=== PATIENT | male | born 1935 | race Caucasian/White ===

== ENCOUNTER 2017-09-13 13:24 | Emergency (ER) | payer MEDICARE, OTHER ==
[2017-09-13] MEDS ORDERED: Sodium Chloride 0.9% 10 ML Syringe FLUSH PRN (13:48)
[2017-09-13] MEDS ORDERED: Labetalol 100 MG/20 ML MDV IVPUSH ONE ×3 (13:49→15:35)
[2017-09-13] MEDS ORDERED: hydrALAZINE 20 MG/ML SDV IVPUSH ONE (16:29)
--- NOTE | 2017-09-13 16:44 | EDM.PDOC ---
ED HPI GENERAL MEDICAL PROBLEM - General Chief Complaint: Cardiovascular Problem Stated Complaint: HIGH BLOOD PRESSURE Time Seen by Provider: 09/13/17 13:44 Source of Information: Reports: Patient, Family History Limitations: Reports: No Limitations - History of Present Illness INITIAL COMMENTS - FREE TEXT/NARRATIVE: The patient presents with elevated blood pressure and some head pressure. The patient was seeing Dr Matthews today and his blood pressure was elevated. When he arrived here it was 256 systolic. He had a slight headache described as pressure. He has no chest pain or shortness of breath. He has no fever, chills , cough, congestion, vision changes, abdominal pain, nausea or vomiting. There has been no changes to his medicines and he did not miss a dose. Dr Alvarez is his doctor. Onset: Gradual Duration: Hour(s): Location: Reports: Head Quality: Reports: Ache Severity: Mild Improves with: Reports: None Worsens with: Reports: None Context: Reports: Activity Associated Symptoms: Reports: No Other Symptoms Head Pain Score (Numeric/FACES): 4 - Related Data Allergies Allergy/AdvReac Type Severity Reaction Status Date / Time No Known Allergies Allergy Verified 09/13/17 13:39 Home Meds: Home Meds Aspirin 81 mg PO BRK 09/13/17 [History] Diclofenac Sodium [Diclofenac Sodium ER] 75 mg PO BID 09/13/17 [History] Finasteride [Proscar] 5 mg PO DAILY 09/13/17 [History] Gabapentin [Neurontin] 600 mg PO BID 09/13/17 [History] Gluc 2KCl/Chondr/Compa Hy/Hy Ac [Glucosamine & Chondroitin Cap] 1 each PO DAILY 09/13/17 [History] Hydrochlorothiazide 12.5 mg PO DAILY 09/13/17 [History] Lisinopril 40 mg PO DAILY 09/13/17 [History] Metoprolol Succinate [Toprol XL] 50 mg PO DAILY 09/13/17 [History] Misoprostol [Cytotec] 200 mcg PO BID 09/13/17 [History] Orphenadrine [Norflex] 100 mg PO BID 09/13/17 [History] Pravastatin [Pravachol] 40 mg PO DAILY 09/13/17 [History] Tamsulosin [Flomax] 1 tab PO DAILY 09/13/17 [History] Social & Family History - Tobacco Use Smoking Status *Q: Former Smoker Used Tobacco, but Quit: Yes Month Tobacco Last Used: 1983 Second Hand Smoke Exposure: No - Caffeine Use Caffeine Use: Reports: Coffee, Soda - Recreational Drug Use Recreational Drug Use: No ED ROS GENERAL - Review of Systems Review Of Systems: See Below Constitutional: Reports: No Symptoms HEENT: Reports: No Symptoms Respiratory: Reports: No Symptoms Cardiovascular: Reports: No Symptoms Endocrine: Reports: No Symptoms GI/Abdominal: Reports: No Symptoms : Reports: No Symptoms Musculoskeletal: Reports: No Symptoms ED EXAM, GENERAL - Physical Exam Exam: See Below Exam Limited By: No Limitations General Appearance: Alert, No Apparent Distress Ears: Normal External Exam Nose: Normal Inspection Head: Atraumatic, Normocephalic Neck: Normal Inspection Respiratory/Chest: No Respiratory Distress, Lungs Clear, Normal Breath Sounds Cardiovascular: Regular Rate, Rhythm, No Edema, No Murmur GI/Abdominal: Soft, Non-Tender, No Organomegaly, No Mass Back Exam: Normal Inspection Extremities: Normal Inspection EKG INTERPRETATION EKG Date: 09/13/17 Time: 13:39 Rhythm: NSR Rate (Beats/Min): 64 Rydal: Normal P-Wave: Present QRS: Normal ST-T: Normal QT: Normal VT/PQ Interval: 1st degree HB Course - Vital Signs Last Recorded V/S: Last Vital Signs Temp 98 F 09/13/17 13:36 Pulse 65 09/13/17 15:42 Resp 18 09/13/17 13:36 BP 200/92 H 09/13/17 15:42 Pulse Ox 97 09/13/17 14:23 - Orders/Labs/Meds Orders: Active Orders 24 hr Category Date Time Status Cardiac Monitoring [RC] . DIRECTED Care 09/13/17 13:48 Active EKG Documentation Completion [RC] STAT Care 09/13/17 13:49 Active Oxygen Therapy [RC] PRN Care 09/13/17 13:48 Active Peripheral IV Care [RC] . DIRECTED Care 09/13/17 13:49 Active Head wo Cont [CT] Stat Exams 09/13/17 13:49 Taken Sodium Chloride 0.9% [Saline Flush] Med 09/13/17 13:48 Active 10 ml FLUSH ASDIRECTED PRN Peripheral IV Insertion Adult [OM.PC] Stat Oth 09/13/17 13:48 Ordered Medication Orders Sodium Chloride (Saline Flush) 10 ml FLUSH ASDIRECTED PRN PRN Reason: Keep Vein Open Last Admin: 09/13/17 14:35 Dose: 10 ml Labs: Laboratory Tests 09/13/17 09/13/17 Range/Units 14:30 14:30 WBC 5.01 (4.23-9.07) K/mm3 RBC 4.27 L (4.63-6.08) M/mm3 Hgb 13.7 (13.7-17.5) gm/L Hct 39.0 L (40.1-51.0) % MCV 91.3 (79.0-92.2) fl MCH 32.1 (25.7-32.2) pg MCHC 35.1 (32.2-35.5) g/dl RDW Std Deviation 41.2 (35.1-43.9) fL Plt Count 166 (163-337) K/mm3 MPV 8.9 L (9.4-12.3) fl Neut % (Auto) 63.0 (34.0-67.9) % Lymph % (Auto) 20.6 L (21.8-53.1) % Hall % (Auto) 10.6 (5.3-12.2) % Eos % (Auto) 4.4 (0.8-7.0) Baso % (Auto) 1.2 (0.1-1.2) % Neut # (Auto) 3.16 (1.78-5.38) K/mm3 Lymph # (Auto) 1.03 L (1.32-3.57) K/mm3 Hall # (Auto) 0.53 (0.30-0.82) K/mm3 Eos # (Auto) 0.22 (0.04-0.54) K/mm3 Baso # (Auto) 0.06 (0.01-0.08) K/mm3 Sodium 140 (136-145) mEq/L Potassium 4.1 (3.5-5.1) mEq/L Chloride 104 (98-107) mEq/L Carbon Dioxide 28 (21-32) mEq/L Anion Gap 12.1 (5-15) BUN 24 H (7-18) mg/dL Creatinine 1.2 (0.7-1.3) mg/dL Est Cr Clr Drug Dosing 51.42 mL/min Estimated GFR (MDRD) 58 (>60) mL/min BUN/Creatinine Ratio 20.0 H (14-18) Glucose 100 (83-115) mg/dL Calcium 8.8 (8.5-10.1) mg/dL Total Bilirubin 0.9 (0.2-1.0) mg/dL AST 20 (15-37) U/L ALT 24 (16-63) U/L Alkaline Phosphatase 63 (46-116) U/L Troponin I < 0.017 (0.00-0.056) ng/mL Total Protein 7.1 (6.4-8.2) g/dl Albumin 3.7 (3.4-5.0) g/dl Globulin 3.4 gm/dL Albumin/Globulin Ratio 1.1 (1-2) Meds: Medications Generic Name Dose Route Start Last Admin Trade Name Freq PRN Reason Stop Dose Admin Sodium Chloride 10 ml 09/13/17 13:48 09/13/17 14:35 Saline Flush FLUSH 10 ml ASDIRECTED PRN Administration Keep Vein Open Discontinued Medications Generic Name Dose Route Start Last Admin Trade Name Freq PRN Reason Stop Dose Admin Hydralazine HCl 10 mg 09/13/17 16:29 Apresoline IVPUSH 09/13/17 16:30 ONETIME ONE Labetalol HCl 20 mg 09/13/17 13:49 09/13/17 14:35 Normodyne IVPUSH 09/13/17 13:50 20 mg ONETIME ONE Administration Protocol Labetalol HCl 20 mg 09/13/17 15:33 Normodyne IVPUSH 09/13/17 15:34 ONETIME ONE Protocol Labetalol HCl 40 mg 09/13/17 15:35 09/13/17 15:42 Normodyne IVPUSH 09/13/17 15:36 40 mg ONETIME ONE Administration Protocol - Re-Assessments/Exams Free Text/Narrative Re-Assessment/Exam: 09/13/17 16:42 I ordered an IV saline lock, EKG, labs, EKG and labetalol 20mg IV. His EKG shows a 1st degree HB with no changes. His CT of his head looks good. His CBC and CMP looks good. His troponin is negative. His BP came down and went back up again so I ordered labetalol 40mg IV. The head pressure is gone. I called Dr Alvarez and he wanted his metoprolol increased and his HCTZ. Departure - Departure Time of Disposition: 16:45 Disposition: Home, Self-Care 01 Condition: Good Clinical Impression: Hypertensive urgency Referrals: John Alvarez MD [Primary Care Provider] - Additional Instructions: Take 100mg of metoprolol or the toprol XL daily. Take 25mg of the hydrochlorothiazide daily. Follow up with Dr Alvarez on Monday. Please return if you are worse. - My Orders Last 24 Hours: My Active Orders 09/13/17 13:48 Cardiac Monitoring [RC] . DIRECTED Oxygen Therapy [RC] PRN Sodium Chloride 0.9% [Saline Flush] 10 ml FLUSH ASDIRECTED PRN Peripheral IV Insertion Adult [OM.PC] Stat 09/13/17 13:49 EKG Documentation Completion [RC] STAT Peripheral IV Care [RC] . DIRECTED Head wo Cont [CT] Stat - Assessment/Plan Last 24 Hours: My Active Orders 09/13/17 13:48 Cardiac Monitoring [RC] . DIRECTED Oxygen Therapy [RC] PRN Sodium Chloride 0.9% [Saline Flush] 10 ml FLUSH ASDIRECTED PRN Peripheral IV Insertion Adult [OM.PC] Stat 09/13/17 13:49 EKG Documentation Completion [RC] STAT Peripheral IV Care [RC] . DIRECTED Head wo Cont [CT] Stat
--- NOTE | 2017-09-15 17:05 | CT ---
Head CT Technique: Multiple axial sections through the brain were obtained. Intravenous contrast was not utilized. Comparison: No previous intracranial imaging. Findings: Ventricles along with basal cisterns and sulci over the convexities are mildly prominent. Minimal diminished density is noted within the periventricular and subcortical white matter compatible with small vessel ischemic demyelination change. No other abnormal parenchymal densities are seen. No evidence of intracranial hemorrhage. No midline shift or mass effect is seen. Visualized sinuses are clear. No acute calvarial abnormality is identified. Impression: 1. Mild senescent change. No acute intracranial abnormality is identified. Diagnostic code #2 I agree with preliminary report issued by [facility] ([facility] report finalized on 09/13/17, 4:13 PM Central Time)
== END 2017-09-13 17:04 | disposition home or self-care (01) ==
LOC: JD.ED 13:24
DX: I16.0 Hypertensive urgency (principal); Z79.82 Long term (current) use of aspirin; Z79.899 Other long term (current) drug therapy; Z87.891 Personal history of nicotine dependence; R51 Headache
CPT/HCPCS: 36415; 70450; 80053; 84484; 85025; 93005; 96374; 96375; 96376; 99284; J0360; J7050; 93010

== ENCOUNTER 2017-09-15 19:09 | Emergency (ER) | payer MEDICARE, OTHER ==
--- NOTE | 2017-09-15 19:38 | EDM.PDOC ---
ED HPI GENERAL MEDICAL PROBLEM - General Chief Complaint: Cardiovascular Problem Stated Complaint: HIGH BLOOD PRESSURE Time Seen by Provider: 09/15/17 19:37 - History of Present Illness INITIAL COMMENTS - FREE TEXT/NARRATIVE: 81-year-old male returns emergency room with escalated blood pressure. Short time ago noticed his blood pressure was quite elevated. Patient seen here 2 days ago with continued high blood pressure, systolics in the 250s. He had his metoprolol increased to twice a day as with his hydrochlorothiazide. He been doing well after this until this evening. The patient does not have chest pain chest pressure breathing difficulties or shortness of breath he does not have a headache he has no areas of numbness or weakness basically has no other complaints at this time. - Related Data Allergies Allergy/AdvReac Type Severity Reaction Status Date / Time metoclopramide [From Reglan] Allergy Other Verified 09/15/17 19:40 Sulfa (Sulfonamide Allergy Cannot Verified 09/15/17 19:40 Antibiotics) Remember Home Meds: Home Meds Aspirin 81 mg PO BRK 09/13/17 [History] Diclofenac Sodium [Diclofenac Sodium ER] 75 mg PO BID 09/13/17 [History] Finasteride [Proscar] 5 mg PO DAILY 09/13/17 [History] Gabapentin [Neurontin] 600 mg PO BID 09/13/17 [History] Gluc 2KCl/Chondr/Compa Hy/Hy Ac [Glucosamine & Chondroitin Cap] 1 each PO DAILY 09/13/17 [History] Hydrochlorothiazide 25 mg PO BID 09/13/17 [History] Lisinopril 40 mg PO DAILY 09/13/17 [History] Metoprolol Succinate [Toprol XL] 100 mg PO DAILY 09/13/17 [History] Misoprostol [Cytotec] 200 mcg PO BID 09/13/17 [History] Orphenadrine [Norflex] 100 mg PO BID 09/13/17 [History] Pravastatin [Pravachol] 40 mg PO DAILY 09/13/17 [History] Tamsulosin [Flomax] 1 tab PO DAILY 09/13/17 [History] Acetaminophen [Tylenol Arthritis] 650 mg PO BID 09/15/17 [History] cloNIDine [Catapres] 0.1 mg PO Q12HR #30 tablet 09/16/17 [Rx] Past Medical History HEENT History: Reports: Impaired Vision Cardiovascular History: Reports: High Cholesterol, Hypertension Gastrointestinal History: Reports: GERD Genitourinary History: Reports: BPH Musculoskeletal History: Reports: Arthritis - Infectious Disease History Infectious Disease History: Reports: Chicken Pox Social & Family History - Tobacco Use Smoking Status *Q: Former Smoker Used Tobacco, but Quit: Yes Month Tobacco Last Used: 1983 Second Hand Smoke Exposure: No - Caffeine Use Caffeine Use: Reports: Coffee, Soda - Recreational Drug Use Recreational Drug Use: No ED ROS GENERAL - Review of Systems Review Of Systems: See Below Constitutional: Reports: No Symptoms HEENT: Reports: No Symptoms Respiratory: Reports: No Symptoms Cardiovascular: Reports: No Symptoms. Denies: Chest Pain, Palpitations Endocrine: Reports: No Symptoms GI/Abdominal: Reports: No Symptoms : Reports: No Symptoms Musculoskeletal: Reports: No Symptoms Skin: Reports: No Symptoms Neurological: Reports: No Symptoms ED EXAM, GENERAL - Physical Exam Exam: See Below Exam Limited By: No Limitations General Appearance: Alert, No Apparent Distress Head: Atraumatic, Normocephalic Neck: Normal Inspection, Supple, Non-Tender, Full Range of Motion Respiratory/Chest: No Respiratory Distress, Lungs Clear, Normal Breath Sounds Cardiovascular: Regular Rate, Rhythm, No Edema, No Murmur GI/Abdominal: Normal Bowel Sounds, Soft, Non-Tender Neurological: Alert, Oriented, Normal Cognition Psychiatric: Normal Affect, Normal Mood Course - Vital Signs Last Recorded V/S: Last Vital Signs Temp 36.3 C 09/15/17 19:30 Pulse 62 09/15/17 19:30 Resp 18 09/15/17 19:30 BP 229/94 H 09/16/17 00:18 Pulse Ox 94 L 09/15/17 19:30 - Orders/Labs/Meds Orders: Active Orders 24 hr Category Date Time Status EKG Documentation Completion [RC] STAT Care 09/15/17 19:54 Active Labs: Laboratory Tests 09/15/17 Range/Units 20:10 Sodium 141 (136-145) mEq/L Potassium 4.0 (3.5-5.1) mEq/L Chloride 104 (98-107) mEq/L Carbon Dioxide 27 (21-32) mEq/L Anion Gap 14.0 (5-15) BUN 34 H (7-18) mg/dL Creatinine 1.4 H (0.7-1.3) mg/dL Est Cr Clr Drug Dosing 44.07 mL/min Estimated GFR (MDRD) 49 (>60) mL/min BUN/Creatinine Ratio 24.3 H (14-18) Glucose 131 H (83-115) mg/dL Calcium 8.7 (8.5-10.1) mg/dL Meds: Medications Discontinued Medications Generic Name Dose Route Start Last Admin Trade Name Rafia PRN Reason Stop Dose Admin Clonidine HCl 0.1 mg 09/16/17 00:07 09/16/17 00:18 Catapres PO 09/16/17 00:08 0.1 mg ONETIME ONE Administration Hydralazine HCl 12.5 mg 09/15/17 19:51 09/15/17 20:02 Apresoline PO 09/15/17 19:52 12.5 mg ONETIME ONE Administration Hydralazine HCl 12.5 mg 09/16/17 22:22 Apresoline PO 09/16/17 22:23 ONETIME ONE Hydralazine HCl 12.5 mg 09/15/17 22:22 09/15/17 22:40 Apresoline PO 09/15/17 22:23 12.5 mg ONETIME ONE Administration Labetalol HCl 10 mg 09/15/17 21:20 09/15/17 22:30 Normodyne IVPUSH 09/15/17 21:21 Not Given ONETIME ONE Protocol - Re-Assessments/Exams Free Text/Narrative Re-Assessment/Exam: 09/15/17 19:57 Check a basic metabolic panel EKG start the patient on hydralazine 12.5 mg 1 time and see how he does 09/15/17 21:21 Patient's blood pressure may have responded favorably to the hydralazine 12.5 mg. However his systolics of stabilized at or just under 190 we'll try 10 mg of labetalol. Chemistries nondiagnostic his creatinine is up from 1.2 the other day to 1.4. 09/15/17 23:43 Patient is been resistant to the hydralazine 2 doses we'll try clonidine 0.1 mg sublingual patient is not having symptoms this point. 09/16/17 01:49 He did better with the clonidine his most recent blood pressure is 155/73 he dropped as low as systolic of 137. At this point we'll discharge the patient home with clonidine 0.1 mg twice a day hold with a systolic blood pressure less then 160 recently the patient had his metoprolol and hydrochlorothiazide doubled and we do not know the full effect of this yet. The patient has a follow -up appointment with his regular physician on Monday. Departure - Departure Time of Disposition: :51 Disposition: Home, Self-Care Clinical Impression: Severe hypertension Prescriptions: cloNIDine [Catapres] 0.1 mg PO Q12HR #30 tablet Referrals: John Alvarez MD [Primary Care Provider] - Forms: ED Department Discharge Additional Instructions: Return to the emergency room with any questions problems worsening symptoms. Follow-up with your doctor on Monday as scheduled. Keep a close eye on your blood pressure. You have been started on clonidine 0.1 mg. Take twice daily if the top number of your blood pressure is greater than 160 otherwise hold the medication. Use caution with change of position as you can be more prone to get dizzy or lightheaded until your system is used to taking the clonidine. And you may be more prone to remembering your dreams. - My Orders Last 24 Hours: My Active Orders 09/15/17 19:54 EKG Documentation Completion [RC] STAT - Assessment/Plan Last 24 Hours: My Active Orders 09/15/17 19:54 EKG Documentation Completion [RC] STAT
[2017-09-15] MEDS ORDERED: hydrALAZINE 25 MG Tab PO ONE ×2 (19:51→22:22)
[2017-09-15] MEDS ORDERED: Labetalol 100 MG/20 ML MDV IVPUSH ONE (21:20)
[2017-09-16] MEDS ORDERED: cloNIDine 0.1 MG Tab PO ONE (00:07)
[2017-09-16] MEDS ORDERED: hydrALAZINE 25 MG Tab PO ONE (22:22)
== END 2017-09-16 02:05 | disposition home or self-care (01) ==
LOC: JD.ED 19:09
DX: I10 Essential (primary) hypertension (principal); E78.00 Pure hypercholesterolemia, unspecified; Z87.891 Personal history of nicotine dependence; Z79.899 Other long term (current) drug therapy; Z79.82 Long term (current) use of aspirin
CPT/HCPCS: 36415; 80048; 93005; 99284; A9270; 93010

== ENCOUNTER 2021-05-05 07:06 | Emergency (ER) | payer MEDICARE, OTHER ==
--- NOTE | 2021-05-05 07:58 | EDM.PDOC ---
ED HPI GENERAL MEDICAL PROBLEM - General Chief Complaint: Back Pain or Injury Stated Complaint: LEFT SIDE FLANK/HIP/BACK PAIN Time Seen by Provider: 05/05/21 07:48 - History of Present Illness INITIAL COMMENTS - FREE TEXT/NARRATIVE: 85-year-old male presents the emergency room with left hip and back pain. This pain has been ongoing but has been fairly manageable up until couple weeks ago when the pain is really gotten quite severe. Patient recently had some hip x-rays that the way the patient understands its is no worse than it was several years ago. The patient can hardly bear weight on his left hip when he stands in the morning and this is been getting worse a couple months ago the patient had pain when he stood on it but the pain got better as he moves around during the course the day he would go out and walk fairly good distances and did feel great. And over the last couple of months this is just gradually been getting worse. The patient has a foot drop on his right side secondary to back problems. Patient has a significant history of what sounds like low back fusion from T12 all the way down to the sacrum. The patient has pain that extends down the back of his leg through the buttocks and occasionally down to the knee but does not go below the knee. He does not have worsening sensation in his foot. He denies loss of bowel or bladder control. Patient has hip pain if he takes a deep breath while in the sitting position. Left Hip Pain Score (Numeric/FACES): 10 - Related Data Allergies Allergy/AdvReac Type Severity Reaction Status Date / Time metoclopramide [From Reglan] Allergy Severe Other Verified 05/05/21 07:32 Sulfa (Sulfonamide Allergy Severe Cannot Verified 05/05/21 07:32 Antibiotics) Remember Home Meds: Home Meds Aspirin 81 mg PO BRK 09/13/17 [History] Finasteride [Proscar] 5 mg PO DAILY 09/13/17 [History] Gabapentin [Neurontin] 300 mg PO BID 09/13/17 [History] Glucosam/Chondr/Collagn/Hyalur [Glucosamine & Chondroitin Cap] 1 each PO BID 09/13/17 [History] Hydrochlorothiazide 25 mg PO BID 09/13/17 [History] Lisinopril 40 mg PO DAILY 09/13/17 [History] Metoprolol Succinate [Toprol XL] 100 mg PO DAILY 09/13/17 [History] Pravastatin [Pravachol] 40 mg PO DAILY 09/13/17 [History] Tamsulosin [Flomax] 1 tab PO DAILY 09/13/17 [History] Acetaminophen [Tylenol Arthritis] 650 mg PO BID 09/15/17 [History] Baclofen 10 mg PO BID 05/05/21 [History] Doxycycline [Vibramycin] 100 mg PO ASDIRECTED 05/05/21 [History] Hydrocodone/Acetaminophen [Hydrocodone-Acetamin 5-325 mg] 1 each PO ASDIRECTED #30 tablet 05/05/21 [Rx] allopurinoL [Zyloprim] 100 mg PO DAILY 05/05/21 [History] amLODIPine [Norvasc] 5 mg PO DAILY 05/05/21 [History] metroNIDAZOLE [Metronidazole] 1 applic TOP BID 05/05/21 [History] Past Medical History HEENT History: Reports: Impaired Vision Cardiovascular History: Reports: High Cholesterol, Hypertension Gastrointestinal History: Reports: GERD Genitourinary History: Reports: BPH Musculoskeletal History: Reports: Arthritis - Infectious Disease History Infectious Disease History: Reports: Chicken Pox - Past Surgical History Musculoskeletal Surgical History: Reports: Other (See Below) Other Musculoskeletal Surgeries/Procedures:: Back surgery x 3 Social & Family History - Family History Family Medical History: No Pertinent Family History - Tobacco Use Tobacco Use Status *Q: Former Tobacco User Used Tobacco, but Quit: Yes Month/Year Tobacco Last Used: 03/1984 - Caffeine Use Caffeine Use: Reports: Coffee - Alcohol Use Days Per Week of Alcohol Use: 7 Number of Drinks Per Day: 1 Total Drinks Per Week: 7 - Recreational Drug Use Recreational Drug Use: No ED ROS GENERAL - Review of Systems Review Of Systems: See Below Constitutional: Reports: No Symptoms HEENT: Reports: No Symptoms Respiratory: Reports: No Symptoms Cardiovascular: Reports: No Symptoms GI/Abdominal: Reports: No Symptoms : Reports: No Symptoms Musculoskeletal: Reports: Other (Hip pain) ED EXAM, GENERAL - Physical Exam Exam: See Below Exam Limited By: No Limitations General Appearance: Alert, No Apparent Distress Head: Atraumatic, Normocephalic Neck: Normal Inspection, Supple, Non-Tender, Full Range of Motion Respiratory/Chest: No Respiratory Distress, Lungs Clear, Normal Breath Sounds Cardiovascular: Regular Rate, Rhythm, No Edema, No Murmur GI/Abdominal: Normal Bowel Sounds, Soft, Non-Tender Back Exam: Paraspinal Tenderness. No: Vertebral Tenderness Extremities: Normal Inspection, No Pedal Edema, Other (No palpable tenderness over the hip. Any sort of motion causes exquisite discomfort.) Course - Vital Signs Last Recorded V/S: Last Vital Signs Temp 37.1 C 05/05/21 07:23 Pulse 55 L 05/05/21 07:23 Resp 20 05/05/21 07:23 BP 194/78 H 05/05/21 07:23 Pulse Ox 99 05/05/21 07:23 - Orders/Labs/Meds Meds: Medications Discontinued Medications Generic Name Dose Route Start Last Admin Trade Name Rafia PRN Reason Stop Dose Admin Hydromorphone HCl 0.5 mg 05/05/21 08:16 05/05/21 08:22 Hydromorphone 0.5 Mg/0.5 Ml Syringe IM 05/05/21 08:17 0.5 mg ONETIME ONE Administration - Re-Assessments/Exams Free Text/Narrative Re-Assessment/Exam: 05/05/21 10:00 Examination of his lumbar spine shows no acute changes with the surgical instrumentation 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 Left hip does not show any acute changes he does have marked degenerative changes noted. I think the patient's history is suspicious for hip pain however I cannot be certain. Patient has follow-up with the pain doctor on 26 May but see what he says in the meantime we will put the patient on hydrocodone 5/325 1 every 6 hours as needed for discomfort. Departure - Departure Time of Disposition: 10:02 Disposition: Home, Self-Care 01 Clinical Impression: Back pain, Left hip pain - Discharge Information Referrals: John Alvarez MD [Primary Care Provider] - Forms: ED Department Discharge Additional Instructions: Return to the emergency room with any questions problems or worsening symptoms. You have been started on hydrocodone take 1 every 6-8 hours as needed for discomfort. Do not drive or operate hazardous equipment within 12 hours of using this medication. If using this medication on a regular basis be sure and use a good stool softener as it can cause constipation. Follow-up with your regular physician as scheduled. Follow-up with the pain doctor on the 4th of next month as scheduled. Sepsis Event Note (ED) - Evaluation Sepsis Screening Result: No Definite Risk - Focused Exam Vital Signs: Vital Signs Temp Pulse Resp BP Pulse Ox 05/05/21 07:23 37.1 C 55 L 20 194/78 H 99
[2021-05-05] MEDS ORDERED: HYDROmorphone 0.5 MG/0.5 ML Syringe IM ONE (08:16)
--- NOTE | 2021-05-05 09:28 | CR ---
Lumbar spine: AP and lateral views of the lumbar spine were obtained. Comparison: Prior MRI lumbar spine study of 02/06/12. Transpedicle screws are seen from L1-S1. There is diffuse disc space narrowing seen within these same levels. Disc fusion is noted at L3-4 and L4-5. Vacuum phenomena is seen within the L1-2 disc and L5-S1 disc. Disc space narrowing is fairly stable from prior exam. Diffuse posterior laminectomy is noted. Mild posterior disc space narrowing is noted at T11-12 and T12-L1. Anterior osteophytes are seen at both these levels. Vascular calcification is noted. Nothing acute is seen. Impression: 1. Diffuse surgery and degenerative change as noted above. Degenerative change has progressed within the lower thoracic spine from prior MRI. Surgical change is also an interval finding. 2. Nothing acute is seen. Diagnostic code #2
--- NOTE | 2021-05-05 09:28 | CR ---
Pelvis and left hip: AP view of the pelvis was obtained as well as AP and frog-leg lateral views of the left hip. Comparison: No prior pelvis or hip study is available. Mild joint space narrowing is seen with the left hip. Joint space within the right hip is maintained. Prior lumbar spine surgery is noted with trans-pedicle screws. Mild vascular calcification is seen. Bony structures are osteopenic. No acute fracture or dislocation is seen. Impression: 1. Mild joint space narrowing within the left hip. 2. Prior lumbar spine surgery. 3. Other findings as noted above. Nothing acute is seen. Diagnostic code #2
== END 2021-05-05 10:15 | disposition home or self-care (01) ==
LOC: JD.ED 07:06
DX: M25.552 Pain in left hip (principal); M54.5 Low back pain; E78.00 Pure hypercholesterolemia, unspecified; I10 Essential (primary) hypertension; N40.0 Benign prostatic hyperplasia without lower urinary tract symptoms; M19.90 Unspecified osteoarthritis, unspecified site; Z87.891 Personal history of nicotine dependence; Z88.8 Allergy status to other drugs, medicaments and biological substances; Z88.2 Allergy status to sulfonamides; Z79.82 Long term (current) use of aspirin; Z79.899 Other long term (current) drug therapy
CPT/HCPCS: 72100; 73502; 96372; 99283; J1170

== ENCOUNTER 2025-06-23 14:02 | Emergency (ER) | payer MEDICARE, OTHER | END 2025-06-23 16:50 | disposition home or self-care (01) | LOC: JD.ED 14:02 | DX: R51.9 Headache, unspecified (principal); E78.00 Pure hypercholesterolemia, unspecified; I10 Essential (primary) hypertension; K21.9 Gastro-esophageal reflux disease without esophagitis; Z88.2 Allergy status to sulfonamides; Z88.8 Allergy status to other drugs, medicaments and biological substances; Z79.82 Long term (current) use of aspirin; Z79.899 Other long term (current) drug therapy | CPT/HCPCS: 70450; 70450-26; 99284 ==